=== PATIENT | female | born 1980 | race Asian ===

== ENCOUNTER 2018-08-21 11:04 | Outpatient (CLI) | END 2018-08-21 12:05 | disposition home or self-care (01) ==

== ENCOUNTER 2018-08-21 12:09 | Emergency (ER) | END 2018-08-21 12:50 | disposition home or self-care (01) ==

== ENCOUNTER 2018-11-07 07:15 | Inpatient (IN) | payer OTHER ==
[~2018-11-07] VITALS: Ht 154.9 cm; Wt 69.0 kg
[~2018-11-07 07:15] MED LIST: ACET500C5 PO; LORA10CA PO; PREN1TAB13 PO
--- NOTE | 2018-11-07 07:27 | HP ---
Date/Time of Note Date/Time of Note DATE: 11/07/18 TIME: 07:26 OB - History Hx of Present : 3 Para: 2 Care: Good Care Ultrasounds: Normal mid trimester US Obstetrical Complications: None Medical Complications: None Past Family/Social History * Past Medical, Surgical, Family and Obstetric Histories reviewed from chart. OB Admission Exam Physical Exam HEENT: WNL Heart: Rhythm Normal Lungs: Clear, Equal Abdomen: WNL Extremities: Normal Reflexes: Normal Cervical Dilatation: 7cm Effacement: 100% Station: -1 Membranes: Intact Accelerations: Accelerations Present Decelerations: No Decelerations Contractions on Admission: 6-10 Minutes Apart Intensity: Moderate OB Assessment/Plan Reason for admission: active labor Plan: Expectant Management EMELI FELIZ MD Nov 07, 2018 07:27
[2018-11-07 07:38] VITALS: Ht 154.9 cm; Wt 69.0 kg
[2018-11-07] MEDS: LACTATED RINGER'S 1,000 ML IV SCH ×2 (07:38→08:35)
[2018-11-07 07:39] VITALS: BP 108/59; PULSE 69; RESP 20
[2018-11-07] MEDS ORDERED: AMPICILLIN 2 GM/NS (PMX) 100 ML ONE (07:40)
--- NOTE | 2018-11-07 07:55 | TRIAGE ---
OB Triage Datetime Report Generated by CPN: 11/07/2018 07:54 Datetime: 11/07/2018 07:34 Time of Arrival: 11/07/2018 07:10 EGA: 39.6 Arrived By: Ambulatory Arrived From: Home Chief Complaint: UCS SINCE 0400 Movement: Present Contractions: Regular Time Contractions Began: 11/07/2018 04:00 Rupture of Membranes: Denies Vaginal Bleeding: Normal Show Vaginal Discharge: Denies Recent Sexual Intercouse: Denies Abdominal Trauma: Not Applicable Patient Complaints: Contractions Time Provider Notified: 11/07/2018 07:20 Provider Notified: DR FLEIZ Initial Plan: EFM CALL DR FELIZ Maternal Assessment Level of Consciousness: Fully Conscious DTR's/Clonus: DTRs 2+; No Clonus Headache: Denies Blurred Vision: No Respiratory Effort: Unlabored; Regular Rhythm; Equal Expansion Breath Sounds, Left: Clear and Equal Breath Sounds, Right: Clear and Equal Nausea/Vomiting: Denies RUQ Epigastric Pain: Denies Facial Edema: None Temperature Route: Axillary Fall Risk Assessment History of Falling: (0) No Secondary Diagnosis: (0) No Ambulatory Aid: (0) Bedrest/Nurse Assist IV Therapy: (0) No Gait: (0) Normal/Bedrest/Immobile Mental Status: (0) Oriented to Own Ability Fall Score: 0 Fall Risk Score Definition: No Risk: No action required Membranes Ruptured Date/Time: 11/07/2018 07:32 Datetime: 11/07/2018 07:30 Assessment Type: Admission Assessment Vaginal Bleeding: None Maternal Assessment Level of Consciousness: Fully Conscious DTR's/Clonus: DTRs 2+; No Clonus Headache: Denies Blurred Vision: No Respiratory Effort: Unlabored; Regular Rhythm; Equal Expansion Breath Sounds, Left: Clear and Equal Breath Sounds, Right: Clear and Equal Nausea/Vomiting: Denies RUQ Epigastric Pain: Denies Facial Edema: None Fall Risk Assessment History of Falling: (0) No Secondary Diagnosis: (0) No Ambulatory Aid: (0) Bedrest/Nurse Assist IV Therapy: (0) No Gait: (0) Normal/Bedrest/Immobile Mental Status: (0) Oriented to Own Ability Fall Score: 0 Fall Risk Score Definition: No Risk: No action required Pain Assessment Pain Scale: 8 Pain Presence: Intermittent Datetime: 08/21/2018 11:58 Pain Assessment Pain Scale: 8 Pain Presence: Intermittent Pain Type: Contraction Pain Location: Abdomen; Back Pain Relief Measures: Comfort Measures Pain Assessment Comments: EPIDURAL Vaginal Exam Dilatation (cms): 8.5 Effacement (%): 100 Station: -2 Exam By: TRINI Membrane Status: Ruptured Membranes Rupture Method: Artificial Amniotic Fluid Color: Clear Amniotic Fluid Amount: Large Amniotic Fluid Odor: Normal Vaginal Bleeding: Normal Show Cervix, Consistency: Soft Cervix, Position: Anterior Presentation 'A': Cephalic Lie 'A': Longitudinal Datetime: 08/21/2018 11:56 Maternal Assessment Level of Consciousness: Fully Conscious DTR's/Clonus: DTRs 2+ Headache: Denies Blurred Vision: No Nausea/Vomiting: Denies RUQ Epigastric Pain: Denies Facial Edema: None Labor Evaluation Frequency: q 5 Monitor Mode: External Duration (sec)2399: 60 Quality: Moderate Pattern: Normal: <= 5 Contractions in 10 Minutes Resting Tone [place]: Relaxed Heart Rate FHR Baseline Rate: 150 Monitor Mode: External US FHR Baseline Changes: No Baseline Change Variability: Moderate 6-25 bpm Decelerations: None Category: Category I Pain Assessment Pain Scale: 7 Pain Presence: Intermittent Pain Type: Contraction Pain Location: Abdomen Pain Goal: 3 Vaginal Exam Dilatation (cms): 6.0 Effacement (%): 90 Station: -1 Exam By: kwaku knight Membrane Status: Intact Vaginal Bleeding: Normal Show Cervix, Consistency: Soft Cervix, Position: Midposition Presentation 'A': Cephalic Datetime: 08/21/2018 11:48 Fall Score: 0 Fall Risk Score Definition: No Risk: No action required Datetime: 08/21/2018 11:47 EGA: 28.5
[2018-11-07] MEDS ORDERED: IBUPROFEN 600 MG TAB PO PRN (08:00)
[2018-11-07] MEDS ORDERED: OXYTOCIN 30 UNITS/LR 500 ML IV SCH ×3 (08:00→11:34)
[2018-11-07] MEDS ORDERED: MISOPROSTOL 200 MCG TAB PR PRN ×2 (08:00→12:00)
[2018-11-07] MEDS ORDERED: CARBOPROST 250 MCG INJ IM PRN ×2 (08:00→12:00)
[2018-11-07] MEDS ORDERED: METHYLERGONOVINE 0.2 MG INJ IM PRN ×2 (08:00→12:00)
[2018-11-07] MEDS ORDERED: OXYTOCIN 30 UNITS/LR 500 ML IV PRN ×2 (08:00→12:00)
[2018-11-07] MEDS ORDERED: AMPICILLIN 2 GM/NS (PMX) 100 ML IV ONE (08:00)
[2018-11-07] MEDS ORDERED: LIDOCAINE 1% (MPF) 30 ML INJ INJ PRN (08:00)
--- NOTE | 2018-11-07 08:06 | PREAC ---
Date/Time of Note Date/Time of Note DATE: 11/07/18 TIME: 08:05 Anesthesia Eval and Record Evaluation Time Pre-Procedure Interview DATE: 11/07/18 TIME: 08:05 Age 38 Sex female NPO: Other (n/a) Preoperative diagnosis intrauterine Planned procedure labor epidural Past Medical History Past Medical History: Includes : : (3), Para: (1), Gestational age: (39.6) Surgery & Anesthesia Issues No known issue Meds Anticoagulation: No Beta Haydee within 24 hr: No Reason Beta Haydee not given: Pt. not on B-Haydee Active Scripts Acetaminophen* (Tylophen*) 500 Mg Capsule, 1 CAP PO Q6H PRN for PAIN AND OR ELEVATED TEMP, #20 CAP Prov:PARVEEN MENDOZA PA-C 08/21/18 Loratadine* (Claritin*) 10 Mg Capsule, 10 MG PO DAILY, #20 CAP Prov:PARVEEN MENDOZA PA-C 08/21/18 Reported Medications Vit-Iron Fumarate-FA ( Vitamins Tablet) 1 Tab Tablet, 1 TAB PO DAILY, TAB 03/01/16 Current Medications Lactated Ringer's 1,000 ml @ 125 mls/hr Q8H IV ; Start 11/07/18 at 07:38 Ampicillin 100 ml @ 100 mls/hr ONCE ONCE IV ; Start 11/07/18 at 08:00; Stop 11/07/18 at 08:59 Lidocaine (Xylocaine 1% (Mpf)) 30 ml ONCE PRN INJ .EPISIOTOMY; Start 11/07/18 at 08:00 Oxytocin/Lactated Ringer's 500 ml @ 500 mls/hr ONCE POST IV ; Start 11/07/18 at 08:00 Oxytocin/Lactated Ringer's 500 ml @ 125 mls/hr POST IV ; Start 11/07/18 at 08:00 Ibuprofen (Motrin) 600 mg ONCE PRN PO .PAIN 1-5; Start 11/07/18 at 08:00 Oxytocin/Lactated Ringer's 500 ml @ 0 mls/hr ONCE PRN IV .VAGINAL BLEEDING; Start 11/07/18 at 08:00 Methylergonovine Maleate (Methergine) 0.2 mg ONCE PRN IM .VAGINAL BLEEDING; Start 11/07/18 at 08:00 Carboprost Tromethamine (Hemabate) 250 mcg ONCE PRN IM .VAGINAL BLEEDING; Start 11/07/18 at 08:00 Misoprostol (Cytotec) 1,000 mcg ONCE PRN [place] .VAGINAL BLEEDING; Start 11/07/18 at 08:00 Meds reviewed: Yes Allergies Coded Allergies: No Known Allergy (Unverified , 03/02/16) Allergies Reviewed: Yes Labs/Studies Labs Reviewed: Reviewed by anesthesiologist Result Diagram: 11/07/18 0735 Laboratory Tests 11/07/18 07:35 test: N/A Pre-procedure Exam Last vitals Vital Signs Date Temp Pulse Resp B/P (MAP) Pulse Ox O2 O2 Flow FiO2 Time Delivery Rate 11/07/18 97.6 69 20 108/59 Room Air 07:39 (75) Airway: Adequate mouth opening, Adequate thyromental dist Mallampati: Mallampati II Teeth: Normal Lung: Normal Heart: Normal ASA Physical Status ASA physical status: 2 Emergency: None Planned Anesthetic Neuraxial: Epidural Planned Pain Management Parenteral pain med Pre-operative Attestations Prior to commencing anesthesia and surgery, the patient was re-evaluated, there was verification of: *The patient's identity *The results of appropriate recent lab work and preoperative vital signs *The above evaluation not changing prior to induction *Anesthetic plan, risk benefits, alternative and complications discussed with patient/family; questions answered; patient/family understands, accepts and wishes to proceed. DAYAN ESPANA MD Nov 07, 2018 08:06
[2018-11-07] MEDS ORDERED: NALOXONE (0.4 MG/ML) INJ IV PRN (08:30)
[2018-11-07] MEDS ORDERED: DIPHENHYDRAMINE 50 MG INJ IV PRN (08:30)
[2018-11-07] MEDS ORDERED: ONDANSETRON 4 MG INJ IV PRN (08:30)
[2018-11-07] MEDS ORDERED: FENTAnyl 2MCG/ML-ROPIV 0.2% 100 ML BAG EPI SCH (08:30)
--- NOTE | 2018-11-07 09:06 | PAC ---
Date/Time of Note Date/Time of Note DATE: 11/07/18 TIME: 09:06 Post-Anesthesia Notes Post-Anesthesia Note Last documented vital signs Vital Signs Date Temp Pulse Resp B/P (MAP) Pulse Ox O2 O2 Flow FiO2 Time Delivery Rate 11/07/18 97.6 69 20 108/59 Room Air 07:39 (75) Activity: WNL Respiratory function: WNL Cardiovascular function: WNL Mental status: Baseline Pain reasonably controlled: Yes Hydration appropriate: Yes Nausea/Vomiting absent: Yes Comments BP: 138/64 HR: 78 RR: 15 T: 98 SaO2: 99% DAYAN ESPANA MD Nov 07, 2018 09:06
--- NOTE | 2018-11-07 09:18 | LDN ---
Date/Time of Note Date/Time of Note DATE: 11/07/18 TIME: 09:17 Delivery Summary Placenta Delivered: Spontaneously Meconium: none Episiotomy: No Perineal laceration: 1 Anesthesia type: Epidural Estimated blood loss: 300 Sponge & Needle done & correct: Yes All needle counts correct: Yes Any foreign bodies felt in the: No EMELI FELIZ MD Nov 07, 2018 09:18
[2018-11-07 11:30] VITALS: BP 111/67; PULSE 73; RESP 20
[2018-11-07] MEDS ORDERED: LACTATED RINGER'S 1,000 ML IV* SCH (11:34)
[2018-11-07 12:00] VITALS: BP 115/65; PULSE 84; RESP 20
[2018-11-07] MEDS ORDERED: ZOLPIDEM 5 MG TAB PO PRN (12:00)
[2018-11-07] MEDS ORDERED: WITCH HAZEL/GLYCERIN PAD PR PRN (12:00)
[2018-11-07] MEDS ORDERED: ACETAMINOPHEN 325 MG TAB PO PRN (12:00)
[2018-11-07] MEDS ORDERED: SENNA/DOCUSATE NA (8.6MG/50MG) TAB PO PRN (12:00)
[2018-11-07] MEDS ORDERED: MAGNESIUM HYDROXIDE 30ML CUP PO PRN (12:00)
[2018-11-07] MEDS ORDERED: DIPHENHYDRAMINE 25 MG CAP PO PRN (12:00)
[2018-11-07] MEDS ORDERED: LANOLIN HPA 1 PKT TOP PRN (12:00)
[2018-11-07] MEDS ORDERED: BENZOCAINE 20% 56 ML SPRAY TOP PRN (12:00)
[2018-11-07] MEDS ORDERED: HYDROCODONE/APAP (5/325) TAB PO PRN (12:00)
[2018-11-07] MEDS: IBUPROFEN 800 MG TAB PO SCH ×3 (12:22→23:52)
[2018-11-07 16:00] VITALS: BP 102/52; PULSE 74; RESP 18
[2018-11-07 20:00] VITALS: BP 111/62; PULSE 74; RESP 18
[2018-11-08] VITALS: BP 110/63; PULSE 73; RESP 20
[2018-11-08 03:50] VITALS: BP 114/69; PULSE 76; RESP 20
[2018-11-08] MEDS: IBUPROFEN 800 MG TAB PO SCH ×3 (05:33→17:37)
[2018-11-08 08:00] VITALS: BP 97/59; PULSE 80; RESP 20
--- NOTE | 2018-11-08 14:42 | QN ---
Documentation Comment PPD#1 is table afebrile tolerates diet No VB +BM +voids Vs stable Gen NAD Abd soft NT ND Genitalia No blood at perineum --->Discharge plan tomorrow LORI BHAKTA M.D. Nov 08, 2018 14:42
[2018-11-08 16:00] VITALS: BP 93/58; PULSE 73; RESP 19
[2018-11-08 19:50] VITALS: BP 109/63; PULSE 68; RESP 18
[2018-11-09] MEDS: IBUPROFEN 800 MG TAB PO SCH ×3 (00:15→12:00)
[2018-11-09 04:40] VITALS: BP 108/62; PULSE 75; RESP 18
[2018-11-09 08:00] VITALS: BP 121/69; RESP 18
--- NOTE | 2018-11-09 08:59 | DS ---
Date/Time of Note Date/Time of Note DATE: 11/09/18 TIME: 08:59 Discharge Summary Admission/Discharge Info Admit Date/Time Nov 07, 2018 at 07:20 Discharge Date/Time Discharge Diagnosis term Patient Condition: Stable Hospital Course unremarkable Home Meds Active Scripts Acetaminophen* (Tylophen*) 500 Mg Capsule, 1 CAP PO Q6H PRN for PAIN AND OR ELEVATED TEMP, #20 CAP Prov:PARVEEN MENDOZA PA-C 08/21/18 Loratadine* (Claritin*) 10 Mg Capsule, 10 MG PO DAILY, #20 CAP Prov:PARVEEN MENDOZA PA-C 08/21/18 Reported Medications Vit-Iron Fumarate-FA ( Vitamins Tablet) 1 Tab Tablet, 1 TAB PO DAILY, TAB 03/01/16 Primary Care Provider DO TRINI Bear PAYMAN P MD Nov 09, 2018 08:59
[2018-11-09] MEDS ORDERED: VARICELLA VACCINE LIVE/PF 1,350 UNIT/0.5 ML ML SC* ONE (09:00)
[2018-11-09] MEDS ORDERED: MEASLES,MUMPS,RUBELLA VACCINE INJ SC* ONE (09:00)
[2018-11-09] MEDS ORDERED: DIPHTH/TET/ACEL PERTUSS (ADULT) 0.5 ML VIAL IM* ONE (09:00)
== END 2018-11-09 12:30 | disposition home or self-care (01) | DRG 807 ==
LOC: L-D 07:15 → OBT 07:15 → L-D 07:20 → OBT 07:20 → L-D 07:46 → PP1 11:32
PROVIDERS: ADMIT Obstetrics & Gynecology; ATTEND Obstetrics & Gynecology
PROC: 10E0XZZ Delivery of Products of Conception, External Approach (ICD-10-PCS; principal; 2018-11-07)
PROC: 0HQ9XZZ Repair Perineum Skin, External Approach (ICD-10-PCS; 2018-11-07)
DX: O70.9 Perineal laceration during delivery, unspecified (principal); Z37.0 Single live birth; Z3A.39 39 weeks gestation of pregnancy
CPT/HCPCS: 62319; 85025; 85610; 85730; 86592; 86850; 86900; 86901; 87340; 90716; G0463; J0290; J2590; J3010; J7120

== ENCOUNTER 2018-12-28 14:05 | Emergency (ER) | payer OTHER ==
[~2018-12-28] VITALS: Ht 157.5 cm; Wt 58.7 kg
[~2018-12-28 14:05] MED LIST changes: -ACET500C5 PO; -LORA10CA PO
[2018-12-28 14:08] VITALS: Ht 157.5 cm; Wt 58.7 kg
[2018-12-28] MEDS ORDERED: SOD CHLORIDE 0.9% 1,000 ML IV STA (15:47)
[2018-12-28] MEDS ORDERED: ALBUTEROL 0.5% (NEB) 2.5 MG/0.5 ML AMP INH STA (15:47)
[2018-12-28] MEDS ORDERED: IBUPROFEN 600 MG TAB PO ONE (16:00)
[2018-12-28] MEDS ORDERED: DIPHENHYDRAMINE 25 MG CAP PO ONE (16:00)
[2018-12-28] MEDS ORDERED: ALBU8.5H8 INH (17:18)
[2018-12-28] MEDS ORDERED: OSEL75CA23 PO (17:18)
[2018-12-28] MEDS ORDERED: IBUP-1542 PO (17:18)
[2018-12-28] MEDS ORDERED: OSELTAMIVIR 75 MG CAP PO ONE (17:30)
--- NOTE | 2018-12-28 17:31 | ERD ---
ER Documentation Chief Complaint Chief Complaint cough & fever x3 days HPI 38-year-old woman complains of 2-3 days of cough, congestion, rhinorrhea, sore throat, fevers. She has a 6-week-old at home who was diagnosed with influenza a few days ago and she suspects the same for herself. She denies vomiting or diarrhea, no abdominal pain, no headache or blurry vision, no neck pain or neck stiffness. ROS All systems reviewed and are negative except as per history of present illness. Medications Home Meds Active Scripts Albuterol Sulfate* (Proair HFA*) 8.5 Gm Hfa.aer.ad, 2 PUFF INH Q4, #1 INHALER Prov:OCTAVIA LANDA MD 12/28/18 Ibuprofen* (Motrin*) 600 Mg Tab, 600 MG PO Q8 PRN for PAIN AND/OR INFLAMMATION, #30 TAB Prov:OCTAVIA LANDA MD 12/28/18 Oseltamivir Phosphate* (Tamiflu*) 75 Mg Capsule, 75 MG PO BID, #9 CAP Prov:OCTAVIA LANDA MD 12/28/18 Reported Medications Vit-Iron Fumarate-FA ( Vitamins Tablet) 1 Tab Tablet, 1 TAB PO DAILY, TAB 03/01/16 Allergies Allergies: Coded Allergies: No Known Allergy (Unverified , 12/28/18) PMhx/Soc Medical and Surgical Hx: pt denies Medical Hx, pt denies Surgical Hx Hx Alcohol Use: No Hx Substance Use: No Hx Tobacco Use: No Smoking Status: Never smoker FmHx Family History: No diabetes Physical Exam Vitals Vital Signs Date Temp Pulse Resp B/P (MAP) Pulse Ox O2 O2 Flow FiO2 Time Delivery Rate 12/28/18 103.1 16:17 12/28/18 86 20 96 21 16:03 12/28/18 103.3 121 18 115/62 98 14:08 (79) Physical Exam Const: No acute distress, congested, well-developed, febrile HEENT: Positive nasal congestion and rhinorrhea, tympanic membranes without bulging or erythema Resp: Clear to auscultation bilaterally Cardio: Tachycardic and regular Abd: Soft, non tender, non distended. Normal bowel sounds Skin: No petechiae or rashes Back: No midline or flank tenderness Ext: No cyanosis, or edema Neur: Awake and alert x3, no focal deficits or facial asymmetry, pupils equal round reactive to light Psych: Normal Mood and Affect Result Diagram: 12/28/18 1603 12/28/18 1603 Results 24 hrs Laboratory Tests Test 12/28/18 16:03 12/28/18 16:05 White Blood Count 6.4 10^3/ul Red Blood Count 4.30 10^6/ul Hemoglobin 13.4 g/dl Hematocrit 39.9 % Mean Corpuscular Volume 92.8 fl Mean Corpuscular Hemoglobin 31.2 pg Mean Corpuscular Hemoglobin Concent 33.6 g/dl Red Cell Distribution Width 12.4 % Platelet Count 203 10^3/UL Mean Platelet Volume 10.5 fl Immature Granulocytes % 0.300 % Neutrophils % 79.3 % Lymphocytes % 12.2 % Monocytes % 7.1 % Eosinophils % 0.8 % Basophils % 0.3 % Nucleated Red Blood Cells % 0.0 /100WBC Immature Granulocytes # 0.020 10^3/ul Neutrophils # 5.1 10^3/ul Lymphocytes # 0.8 10^3/ul Monocytes # 0.5 10^3/ul Eosinophils # 0.1 10^3/ul Basophils # 0.0 10^3/ul Nucleated Red Blood Cells # 0.0 10^3/ul Sodium Level 141 mmol/L Potassium Level 4.0 mmol/L Chloride Level 104 mmol/L Carbon Dioxide Level 25 mmol/L Anion Gap 12 Blood Urea Nitrogen 19 mg/dl Creatinine 0.66 mg/dl Est Glomerular Filtrat Rate mL/min > 60 mL/min Glucose Level 101 mg/dl Calcium Level 9.5 mg/dl Total Bilirubin 0.3 mg/dl Direct Bilirubin 0.00 mg/dl Indirect Bilirubin 0.3 mg/dl Aspartate Amino Transf (AST/SGOT) 19 IU/L Alanine Aminotransferase (ALT/SGPT) 15 IU/L Alkaline Phosphatase 58 IU/L Total Protein 8.0 g/dl Albumin 4.7 g/dl Globulin 3.30 g/dl Albumin/Globulin Ratio 1.42 Lipase 203 U/L Urine Color YELLOW Urine Clarity SLIGHTLY CLOUDY Urine pH 5.0 Urine Specific [place] 1.028 Urine Ketones NEGATIVE mg/dL Urine Nitrite NEGATIVE mg/dL Urine Bilirubin NEGATIVE mg/dL Urine Urobilinogen NEGATIVE mg/dL Urine Leukocyte Esterase NEGATIVE [place]/ul Urine Microscopic RBC 5 /HPF Urine Microscopic WBC 2 /HPF Urine Mucus FEW /HPF Urine Hemoglobin 2+ mg/dL Urine Glucose NEGATIVE mg/dL Urine Total Protein NEGATIVE mg/dl Urine Test NEGATIVE Current Medications Medications Dose Sig/Chriss Start Time Status Last (Trade) Ordered Route PRN Stop Time Admin Dose Reason Admin Albuterol 5 mg ONCE STAT 12/28/18 DC 12/28/18 (Proventil INH 15:47 12/28/18 16:02 0.5% (Neb)) 15:49 25 mg ONCE ONCE 12/28/18 DC Diphenhydrami PO 16:00 12/28/18 ne HCl 16:01 (Benadryl) Ibuprofen 600 mg ONCE ONCE 12/28/18 DC 12/28/18 (Motrin) PO 16:00 12/28/18 16:17 16:01 Sodium 1,000 ml @ Q1H STAT 12/28/18 DC 12/28/18 Chloride 1,000 mls/hr IV 15:47 12/28/18 16:17 16:46 Oseltamivir 75 mg ONCE ONCE 12/28/18 UNV Phosphate PO 17:30 12/28/18 (Tamiflu) 17:31 Procedures/MDM IV line was established patient was placed on terrazzo tile setter rhythm strip revealed a sinus tachycardia at 100 bpm with upright P and T waves. Patient was febrile I administered 1 L normal saline IV, ibuprofen 600 mg p.o., albuterol 5 mg via nebulizer Chest X-ray 1V Interpreted by me: Soft Tissue: No acute abnormalities Bones: No acute abnormalities Mediastinum/Cardiac Silhouette/Lungs: No acute abnormalities CBC and electrolytes are normal, liver function tests were normal, urinalysis was negative for infection. Influenza A swab positive. I do not suspect sepsis I administered Tamiflu 75 mg p.o. x1. Patient's tachycardia resolved and she defervesced, she feels much better and will be discharged home with a prescription for Tamiflu and pro-air for cough Differential diagnoses considered, included but not limited to acute coronary syndrome, pulmonary embolism, aortic dissection, abdominal aortic aneurysm, sepsis, stroke, meningitis, encephalitis, pneumonia, appendicitis, cholecystitis, bowel obstruction, pyelonephritis, nephrolithiasis, cystitis, as well as metabolic, hematologic, and electrolyte abnormalities. As well as abscess, cellulitis, fractures, and dislocations. Patient feels much better at this time, and vital signs are normal, symptoms have improved. I did give strict instructions to return to the ED if symptoms continue or worsen, patient will otherwise follow-up with primary care physician. Patient understood instructions and agreed to plan. Disclaimer: Inadvertent spelling and grammatical errors are likely due to EHR/dictation software use and do not reflect on the overall quality of patient care. Also, please note that the electronic time recorded on this note does not necessarily reflect the actual time of the patient encounter. Departure Diagnosis: Primary Impression: Influenza A H1N1 infection Condition: Good Patient Instructions: Influenza (Adult) OCTAVIA LANDA MD Dec 28, 2018 17:31
[2018-12-28 17:47] VITALS: BP 132/67; PULSE 103; RESP 18
== END 2018-12-28 17:48 | disposition home or self-care (01) ==
LOC: FTE 14:05
DX: J10.1 Influenza due to other identified influenza virus with other respiratory manifestations (principal)
CPT/HCPCS: 36415; 71045; 80053; 81001; 83690; 84703; 85025; 87400; 94644; 96360; J7030; Z7502; Z7610